=== PATIENT | female | born 1995 | race Caucasian/White ===

== ENCOUNTER 2024-09-11 21:06 | Emergency (ER) | payer BC, OTHER ==
[2024-09-11] MEDS ORDERED: Lidocaine 1%/Epinephrine 1:100K 10 ML VIAL ONE (21:24)
[2024-09-11] MEDS ORDERED: Boostrix 0.5 ML (Tdap) VIAL (>/=7 yrs of age) ONE (21:28)
[2024-09-11] MEDS ORDERED: Amoxicillin/Potassium Clav 875 MG TAB ONE (21:40)
[2024-09-11] MEDS ORDERED: Bacitracin 1 PK ONE (21:44)
== END 2024-09-11 22:14 | disposition home or self-care (01) ==
LOC: BURERS 21:06
DX: S81.852A Open bite, left lower leg, initial encounter (principal); Z23 Encounter for immunization; W54.0XXA Bitten by dog, initial encounter; Y93.89 Activity, other specified
CPT/HCPCS: 12002; 90471; 90715